=== PATIENT | female | born 1965 | race Asian ===

== ENCOUNTER 2017-02-21 11:15 | Day surgery (SDC) | payer OTHER ==
[~2017-02-21] VITALS: Ht 160 cm; Wt 46.4 kg
[2017-02-21 11:21] VITALS: BP 97/64
--- NOTE | 2017-02-21 11:28 | NUR ---
PT TO BED 12.
--- NOTE | 2017-02-21 11:30 | NUR ---
PATIENT REFERRED TO ER PER DR. SIMMS FOR EVALUATION OF VAGINAL BLEEDING R/O MOLAR . PT STATES HER REGULAR LMP WAS 11/29/16, AND SHE STARTED BLEEDING 02/10/17 . DENIES N/V/D; SKIN IS PINK/WARM/DRY; AAOX4 WITH EVEN AND STEADY GAIT; LUNGS CLEAR BL; HR EVEN AND REGULAR; PT DENIES ANY FEVER, CP, SOB, OR COUGH AT THIS TIME; PATIENT STATES PAIN OF 0/10 AT THIS TIME; VSS; PATIENT POSITIONED FOR COMFORT; HOB ELEVATED; BEDRAILS UP X2; BED DOWN. ER MD MADE AWARE OF PT STATUS.
--- NOTE | 2017-02-21 11:34 | NUR ---
DR. WHITEHEAD AT BEDSIDE.
[2017-02-21 12:12] LABS: BASOPHILS # (AUTO) 0.2 K/uL (0.00-0.22); BASOPHILS % (AUTO) 2.5 % (0.0-2.0); EOSINOPHILS # (AUTO) 0.2 K/uL (0-0.4); EOSINOPHILS % (AUTO) 2.7 % (0.0-4.0); HEMOGLOBIN 12.3 g/dL (12.0-16.0); LYMPHOCYTES # (AUTO) 1.6 K/uL (2.5-16.5); LYMPHOCYTES % (AUTO) 24.7 % (20.5-51.1); MEAN CORPUSCULAR HEMOGLOBIN 32 pg (27-31); MEAN CORPUSCULAR HGB CONC 33 g/dL (33-37); MEAN CORPUSCULAR VOLUME 96 fL (80-94); MONOCYTES # (AUTO) 0.4 K/uL (0.8-1.0); MONOCYTES % (AUTO) 6.9 % (1.7-9.3); NEUTROPHILS # (AUTO) 3.9 K/uL (1.8-7.7); NEUTROPHILS % (AUTO) 63.2 % (42.2-75.2); PLATELET COUNT (AUTO) 299 K/uL (140-450); RED BLOOD CELL COUNT(AUTO) 3.85 MIL/uL (4.20-5.40); RED CELL DISTRIBUTION WIDTH 12.4 % (11.6-13.7); WHITE BLOOD COUNT (AUTO) 6.3 K/uL (4.8-10.8)
--- NOTE | 2017-02-21 12:22 | NUR ---
US AT BEDSIDE.
[2017-02-21 12:24] LABS: ANION GAP 8.6 (8-16); CARBON DIOXIDE 31.6 mmol/L (21-32); CREATININE 0.6 mg/dL (0.6-1.3); POTASSIUM 4.2 mmol/L (3.5-5.1)
[2017-02-21 12:28] LABS: PROTHROMBIN TIME 10.5 secs (10.8-13.4)
[2017-02-21 12:29] LABS: ALBUMIN 3.4 g/dL (3.4-5.0); TOTAL BILIRUBIN 0.2 mg/dL (0.0-1.0)
[2017-02-21 12:41] LABS: BILIRUBIN,URINE NEGATIVE (NEGATIVE); BLOOD, URINE 3+ (NEGATIVE); COLOR,URINE YELLOW (YELLOW); LEUKOCYTE ESTERASE ,URINE 2+ (NEGATIVE); NITRITE, URINE NEGATIVE (NEGATIVE); UGLUCOSE NEGATIVE (NEGATIVE)
[2017-02-21 13:00] LABS: APPEARANCE,URINE SLIGHTLY HAZY (CLEAR)
[2017-02-21 13:02] LABS: RBC,URINE 3-10 (FEW) /HPF (0-5)
--- NOTE | 2017-02-21 13:03 | NUR ---
PT RESTING QUIETLY ON GURPARLIER.
--- NOTE | 2017-02-21 13:31 | NUR ---
PT RESTING QUIETLY ON GURNEY WITH EYES CLOSED. DENIES ANY PAIN OR DISCOMFORT AT THIS TIME.
--- NOTE | 2017-02-21 13:57 | NUR ---
Patient will be admitted to care of DR Denver RILEY. Admited to Med/Surg. Will go to room 104-B. Belongings list completed. Report to COMMERCIAL MARKETING SPECIALIST.
[2017-02-21] MEDS ORDERED: PROPOFOL 200 MG/20 ML VIAL IV ONE (14:00)
[2017-02-21] MEDS ORDERED: fentaNYL 0.05 MG/ML VIAL ONE (14:22)
[2017-02-21] MEDS ORDERED: MIDAZOLAM 2 MG/2 ML VIAL ONE (14:22)
[2017-02-21] MEDS ORDERED: ONDANSETRON 4 MG/2 ML VIAL IVP PRN (14:35)
[2017-02-21] MEDS ORDERED: MORPHINE SULFATE 4 MG/ML SYR IM/IVP PRN (14:35)
[2017-02-21] MEDS ORDERED: ACETAMINOPHEN/CODEINE 300/30MG 1 TAB PO PRN (14:35)
[2017-02-21] MEDS ORDERED: IBUPROFEN 800 MG TAB PO PRN (14:35)
[2017-02-21] MEDS ORDERED: MORPHINE SULFATE 2 MG/ML SYR IVP PRN (14:40)
[2017-02-21] MEDS ORDERED: MORPHINE SULFATE 4 MG/ML SYR IVP PRN ×2 (14:40)
[2017-02-21] MEDS ORDERED: MIDAZOLAM 2 MG/2 ML VIAL IV ONE (14:40)
[2017-02-21] MEDS ORDERED: METOCLOPRAMIDE 10 MG/2 ML INJ VIAL IVP PRN (14:40)
[2017-02-21 15:25] VITALS: BP 94/61
--- NOTE | 2017-02-21 15:25 | NUR ---
RECEIVED PT FROM OR. AWAKE. ALERT ORIENTEDX4. NO SOB NOTED. DENIES ANY PAIN OR DISCOMFORT AT THIS TIME. PT AMBULATORY. NO NOTED VAGINAL BLEEDING. SAFETY PRECAUTION IN PLACE. STEPHAN;L LIGHT WITHIN REACH.
--- NOTE | 2017-02-21 16:10 | NUR ---
CALLED DR. Denver RILEY REGARDING THE RESULT FOR THE REPEAT HCG QUANT. PER DR. RILEY PT CAN GO HOME.
--- NOTE | 2017-02-21 16:41 | NUR ---
PT AWAKE, ALERT ORIENTEDX4. NO SOB NOTED. DENIES ANY PAIN OR DISCOMFORT AT THIS TIME. VITAL SIGNS STABLE. TOLERATED CLEAR LIQUID DIET, PT WAS ABLE TO VOID, LITTLE TO NO BLOOD NOTED ON URINE. LITTLE AMOUNT OF BLOODY DISCHARGE NOTED ON PERIPAD. PT ON STABLE CONDITION. IV CANNULA REMOVED AND INTACT. AWAITING TO SHAPER SET UP OPERATOR PT. EXPLAINED TO PT, PT DISCHARGE INSTRUCTIONS AND HEALTH TEACHINGS. PT VERBALIZED UNDERSTANDING AND SIGNED PAPERS. NAME ARMBAND REMOVED.
--- NOTE | 2017-02-21 16:55 | NUR ---
PT REFUSED TO BE WHEELED OUT. PREFERRED TO WALK. WALKED PT GOING TO THE PARKING LOT. PER PT, HER WILL PICK HER UP AT THE ER. WALKED PT GOING TO THE ER. NO SOB NOTED DENIES ANY PAIN RO DISCOMFORT AT THIS TIME. PT DISCHARGED ON STABLE CONDITION.
== END 2017-02-21 16:55 | disposition home or self-care (01) ==
LOC: MED 11:15 → MOR 13:59 → MTU 14:12 → MOR 16:55
PROVIDERS: ATTEND Obstetrics & Gynecology
DX: O03.4 Incomplete spontaneous abortion without complication (principal)
CPT/HCPCS: 36415; 59812; 76817; 80053; 81001; 84702; 85025; 85610; 85730; 86886; 86900; 86901; 87081; 87086; 94760; 99285; J2250; J2704; J3010; J7120; Q0092